=== PATIENT | male | born 1980 | race Two or more races ===

== ENCOUNTER 2016-07-12 22:53 | Emergency (ER) | payer MEDICAID ==
[~2016-07-12] VITALS: Ht 172.7 cm; Wt 88.5 kg
[2016-07-13 00:08] VITALS: BP 120/85
== END 2016-07-13 01:30 | disposition home or self-care (01) ==
LOC: ER 22:58
DX: S46.911A Strain of unspecified muscle, fascia and tendon at shoulder and upper arm level, right arm, initial encounter (principal); M79.1 Myalgia; E11.9 Type 2 diabetes mellitus without complications; F17.210 Nicotine dependence, cigarettes, uncomplicated; V43.02XA Car driver injured in collision with other type car in nontraffic accident, initial encounter; Y93.89 Activity, other specified; Y99.8 Other external cause status; Y92.89 Other specified places as the place of occurrence of the external cause